=== PATIENT | female | born 1970 ===

== ENCOUNTER 2018-09-25 13:25 | Emergency (ER) | payer OTHER ==
[2018-09-25 13:39] VITALS: BMI 36.3
--- NOTE | 2018-09-25 14:11 | ED PDOC ---
HPI: Back Time Seen by Provider: 09/25/18 13:52 Chief Complaint (Nursing): Back Pain History Per: Patient Onset/Duration Of Symptoms: Days (5) Current Symptoms Are (Timing): Still Present Severity: Moderate Previous Symptoms: Back Pain Exacerbating Factor(s): Movement Additional Complaint(s): Right sided low back pain radiating to right buttock and down right leg. Also c/o lower abd cramps assoc with menses over past 5 days. Has also had cough which exacerbates back pain. Denies weakness or parasthesias. No dysuria or frequency. Past Medical History Vital Signs: Last Vital Signs Temp 99.5 F 09/25/18 13:38 Pulse 95 H 09/25/18 13:38 Resp 16 09/25/18 13:38 BP 154/74 H 09/25/18 13:38 Pulse Ox 97 09/25/18 13:38 - Medical History PMH: Seizures (LAST SEIZURE 06/01/2018) Denies: Chronic Kidney Disease - Surgical History Surgical History: Appendectomy, Cholecystectomy - Family History Family History: States: Unknown Family Hx - Immunization History Hx Tetanus Toxoid Vaccination: Yes Hx Pneumococcal Vaccination: Yes - Home Medications Home Medications: Ambulatory Orders Medication Instructions Recorded Levetiracetam [Keppra] 500 mg PO BID 06/03/18 Metformin HCl [Glucophage] 500 mg PO BID 06/03/18 Bimatoprost [Lumigan] 1 drop EACHEYE HS 06/15/18 Amoxicillin [Amoxil 500 mg Cap] 500 mg PO TID #21 cap 09/25/18 traMADol [Ultram] 50 mg PO Q8 #10 tab 09/25/18 - Allergies Allergies/Adverse Reactions: Allergies Allergy/AdvReac Type Severity Reaction Status Date / Time No Known Allergies Allergy Verified 06/15/18 12:11 Review of Systems Constitutional: Positive for: Fever Gastrointestinal: Positive for: Abdominal Pain Genitourinary Female: Positive for: Vaginal Bleeding Musculoskeletal: Positive for: Back Pain Neurological: Negative for: Weakness, Numbness Physical Exam - Physical Exam Appears: Positive for: Non-toxic Skin: Positive for: Normal Color, Warm, DRY Respiratory: Positive for: Normal Breath Sounds. Negative for: Respiratory Distress Gastrointestinal/Abdominal: Positive for: Bowel Sounds, Soft. Negative for: Tenderness Back: Positive for: Normal Inspection. Negative for: L CVA Tenderness, R CVA Tenderness, Vertebral Tenderness Neurologic/Psych: Positive for: Alert, Oriented - ECG O2 Sat by Pulse Oximetry: 97 Disposition - Clinical Impression Clinical Impression: Bronchitis, Radiculopathy, Dysmenorrhea - Patient ED Disposition Is Patient to be Admitted: No Counseled Patient/Family Regarding: Studies Performed, Diagnosis, Need For Followup, Rx Given - Disposition Referrals: New Ribeiro MD [Medical Doctor] - [facility]] Disposition: Routine/Home Disposition Time: 14:49 Condition: FAIR Prescriptions: Amoxicillin [Amoxil 500 mg Cap] 500 mg PO TID #21 cap traMADol [Ultram] 50 mg PO Q8 #10 tab Instructions: Acute Bronchitis, Radiculopathy (DC), Painful Periods Forms: [employer] ([place])
--- NOTE | 2018-09-25 14:46 | RAD ---
Date of service: 09/25/2018 HISTORY: Cough COMPARISON: No prior. TECHNIQUE: Chest PA and lateral FINDINGS: LUNGS: Increased and coarsened interstitial markings; rule out sequela of reactive/inflammatory airway disease or viral illness.. PLEURA: No significant pleural effusion identified. No pneumothorax apparent. CARDIOVASCULAR: Questionable minimal aortic atherosclerotic calcification present. Normal cardiac size. No pulmonary vascular congestion. OSSEOUS STRUCTURES: Mild multilevel degenerative spondylosis of the thoracic spine VISUALIZED UPPER ABDOMEN: Normal. OTHER FINDINGS: None. IMPRESSION: Increased and coarsened interstitial markings; rule out sequela of reactive/inflammatory airway disease or viral illness..
[2018-09-25 15:27] VITALS: BP 127/78; PULSE 78; RESP 19; TEMP 97.6; O2SAT 98
== END 2018-09-25 15:27 | disposition home or self-care (01) ==
LOC: H.ER 13:25
DX: M54.16 Radiculopathy, lumbar region (principal); J40 Bronchitis, not specified as acute or chronic; N94.6 Dysmenorrhea, unspecified
CPT/HCPCS: 71046; 81025; 96372; 99283; J1885

== ENCOUNTER 2018-09-29 09:09 | Inpatient (IN) | payer OTHER ==
[2018-09-29 09:09] VITALS: BMI 36.3
[2018-09-29] MEDS ORDERED: Sodium Chloride 0.9% 1,000 ML IV STA (10:32)
[2018-09-29] MEDS ORDERED: Morphine 4 MG/ML VIAL IV ONE (10:32)
--- NOTE | 2018-09-29 10:32 | ED PDOC ---
HPI: Female Pain Time Seen by Provider: 09/29/18 09:10 Chief Complaint (Nursing): Female Genitourinary Chief Complaint (Provider): Female Genitourinary History Per: Patient History/Exam Limitations: no limitations Onset/Duration Of Symptoms: Worse Since (today), Other (since Sep 01) Associated Symptoms: Nausea, Urinary Symptoms (Heavy bleeding). denies: Vomiting Additional Complaint(s): 47 y/o female with history of seizure and diabetes presents to ER for evaluation of heavy vaginal bleed associated with cramping abdominal pain. Patient reports the bleeding started on September 01. She reports she called Dr. Wan who recommended ED visit. Patient reports pain has been going on for a week with some nausea. She denies vomiting. PMD: Raymundo Wan Past Medical History Reviewed: Historical Data, Nursing Documentation, Vital Signs Vital Signs: Last Vital Signs Temp 98.7 F 09/29/18 09:14 Pulse 72 09/29/18 09:14 Resp 18 09/29/18 09:14 BP 80/62 L 09/29/18 09:14 Pulse Ox 100 09/29/18 09:14 - Medical History PMH: Diabetes, Seizures (LAST SEIZURE 06/01/2018) Denies: Chronic Kidney Disease - Surgical History Surgical History: Appendectomy, Cholecystectomy Other surgeries: D&C on June 15 - Family History Family History: States: Unknown Family Hx - Social History Current smoker - smoking cessation education provided: No (Stopped few days ago) Alcohol: None Drugs: Denies - Immunization History Hx Tetanus Toxoid Vaccination: Yes Hx Pneumococcal Vaccination: Yes - Home Medications Home Medications: Ambulatory Orders Medication Instructions Recorded Levetiracetam [Keppra] 500 mg PO Q12 06/03/18 Metformin HCl [Glucophage] 500 mg PO BID 06/03/18 Bimatoprost [Lumigan] 1 drop EACHEYE HS 06/15/18 Amoxicillin [Amoxil 500 mg Cap] 500 mg PO TID #21 cap 09/25/18 RX: traMADol [Ultram] 50 mg PO Q8 #10 tab 09/25/18 Ergocalciferol (Vitamin D2) 50,000 unit PO TH 09/29/18 [Vitamin D2] Norethindrone-E.estradiol-Iron 2 tab PO DAILY 09/29/18 [Taytulla 1 mg-20 Mcg Capsule] RX: Ferrous Sulfate [Feosol] 325 mg PO DAILY 09/29/18 RX: tiZANidine [Zanaflex] 4 mg PO Q12 09/29/18 - Allergies Allergies/Adverse Reactions: Allergies Allergy/AdvReac Type Severity Reaction Status Date / Time No Known Allergies Allergy Verified 06/15/18 12:11 Review of Systems ROS Statement: Except As Marked, All Systems Reviewed And Found Negative Gastrointestinal: Positive for: Nausea, Abdominal Pain. Negative for: Vomiting Genitourinary Female: Positive for: Vaginal Bleeding Physical Exam - Reviewed Nursing Documentation Reviewed: Yes Vital Signs Reviewed: Yes - Physical Exam Appears: Positive for: No Acute Distress, Uncomfortable Head Exam: Positive for: ATRAUMATIC, NORMOCEPHALIC Skin: Positive for: Normal Color, Warm, Dry Cardiovascular/Chest: Positive for: Regular Rate, Rhythm. Negative for: Murmur Respiratory: Positive for: Normal Breath Sounds. Negative for: Wheezing Gastrointestinal/Abdominal: Positive for: Normal Exam, Soft. Negative for: Tenderness Extremity: Positive for: Normal ROM Neurologic/Psych: Positive for: Alert, Oriented (x3) - Laboratory Results Result Diagrams: 09/29/18 10:40 09/29/18 10:40 - ECG O2 Sat by Pulse Oximetry: 100 (RA) Pulse Ox Interpretation: Normal Medical Decision Making Medical Decision Making: Time: 1013 Initial Plan: --Type and screen --EKG --Beta-HCG --CMP --CBC --Chest x-ray --Morphine 4 mg IV --Zofran 4 mg IV --Transvaginal US 1031 Dr. aWn says to admit patient to med surgery for D&C (pt has had these before for bleeding, has been on oral contraceptives pills to try to control the bleeding, but hasnt worked) 1104 CXR FINDINGS: LUNGS: No active pulmonary disease. PLEURA: No significant pleural effusion identified, no pneumothorax apparent. CARDIOVASCULAR: No aortic atherosclerotic calcification present. Normal cardiac size. No pulmonary vascular congestion. OSSEOUS STRUCTURES: No significant abnormalities. VISUALIZED UPPER ABDOMEN: Normal. OTHER FINDINGS: None. IMPRESSION: No active disease. 1246 Transvaginal US FINDINGS: UTERUS: Measures 6.1 x 6.1 x 8.9 cm. Normal in size, heterogeneous echo characteristics. Hypoechoic submucosal nodule perhaps small fibroid 5 x 7 mm. ENDOMETRIUM: Measures 12.9 mm in diameter. Heterogeneous endometrial echo complex. CERVIX: No cervical abnormality identified. RIGHT OVARY: Measures 2.3 x 2.5 x 2.7 cm. No solid mass. Normal flow. Sub cm cyst/follicle. LEFT OVARY: Measures 1.8 x 2.5 x 3.9 cm. No solid mass. Normal flow. Simple cyst 1.8 x 2.7 x 1.8 cm. FREE FLUID: No significant free fluid noted. OTHER FINDINGS: None. IMPRESSION: Thickened endometrium without focal abnormality. No visible intrauterine or ectopic products of gestation. Additional benign and/or incidental findings described above. Scribe Attestation: Documented by Lisbet Alvarez, acting as a scribe for Carlos Costa MD. Provider Scribe Attestation: All medical record entries made by the Scribe were at my direction and person ally dictated by me. I have reviewed the chart and agree that the record accurately reflects my personal performance of the history, physical exam, medical decision making, and the department course for this patient. I have also personally directed, reviewed, and agree with the discharge instructions and disposition. Disposition - Clinical Impression Clinical Impression: Female genitourinary symptoms - Patient ED Disposition Is Patient to be Admitted: Yes Counseled Patient/Family Regarding: Studies Performed, Diagnosis - Disposition Disposition Time: 10:31 Condition: FAIR
[2018-09-29] MEDS ORDERED: Morphine 4 MG/ML VIAL ONE (11:05)
--- NOTE | 2018-09-29 11:08 | RAD ---
Date of service: 09/29/2018 HISTORY: preop COMPARISON: CT not anterior structure FINDINGS: LUNGS: No active pulmonary disease. PLEURA: No significant pleural effusion identified, no pneumothorax apparent. CARDIOVASCULAR: No aortic atherosclerotic calcification present. Normal cardiac size. No pulmonary vascular congestion. OSSEOUS STRUCTURES: No significant abnormalities. VISUALIZED UPPER ABDOMEN: Normal. OTHER FINDINGS: None. IMPRESSION: No active disease.
[2018-09-29 11:24] LABS: BASO % 0.4 % (0.0-2.0); HEMOGLOBIN 11.7 g/dL (12.0-16.0); LYMPH # 1.7 K/uL (1.0-4.3); LYMPH % 28.7 % (20.0-40.0); MEAN CELL VOLUME 84.4 fl (81.0-99.0); MEAN CORPUSCULAR HEMOGLOBIN 27.1 pg (27.0-31.0); MEAN CORPUSCULAR HGB CONC 32.1 g/dL (33.0-37.0); MEAN PLATELET VOLUME 8.3 fl (7.2-11.7); MONO # 0.7 K/uL (0.0-0.8); MONO % 11.2 % (0.0-10.0); NEUT # 3.5 K/uL (1.8-7.0); NEUT % 59.7 % (50.0-75.0); NRBC % 0.4 % (0.0-0.0); RBC 4.33 Mil/uL (3.80-5.20); RED CELL DISTRIBUTION WIDTH 16.8 % (11.5-14.5); WHITE BLOOD COUNT 5.8 K/uL (4.8-10.8)
[2018-09-29 11:36] LABS: ALB/GLOB RATIO 1.1 (1.0-2.1); ALBUMIN 3.8 g/dL (3.5-5.0); ALT/SGPT 32 U/L (9-52); AST/SGOT 36 U/L (14-36); BLOOD UREA NITROGEN 12 mg/dl (7-17); CALCIUM 8.6 mg/dL (8.4-10.2); GFR NON-AFRICAN AMERICAN > 60
--- NOTE | 2018-09-29 12:50 | US ---
Date of service: 09/29/2018 HISTORY: Vaginal bleeding commencing September 01, 2018. LMP September 01, 2018. Irregular cycles. COMPARISON: None available. TECHNIQUE: FINDINGS: UTERUS: Measures 6.1 x 6.1 x 8.9 cm. Normal in size, heterogeneous echo characteristics. Hypoechoic submucosal nodule perhaps small fibroid 5 x 7 mm. ENDOMETRIUM: Measures 12.9 mm in diameter. Heterogeneous endometrial echo complex. CERVIX: No cervical abnormality identified. RIGHT OVARY: Measures 2.3 x 2.5 x 2.7 cm. No solid mass. Normal flow. Sub cm cyst/follicle. LEFT OVARY: Measures 1.8 x 2.5 x 3.9 cm. No solid mass. Normal flow. Simple cyst 1.8 x 2.7 x 1.8 cm. FREE FLUID: No significant free fluid noted. OTHER FINDINGS: None. IMPRESSION: Thickened endometrium without focal abnormality. No visible intrauterine or ectopic products of gestation. Additional benign and/or incidental findings described above.
[2018-09-29] MEDS ORDERED: Lactated Ringer's 1,000 ML IV SCH ×2 (15:00→18:00)
[2018-09-29] MEDS ORDERED: Propofol 10 mg/ml Inj (20 ML) ONE (16:27)
[2018-09-29] MEDS ORDERED: Dexamethasone 4 mg/1 ml ONE (16:28)
[2018-09-29] MEDS ORDERED: Ferric Subsulfate Sol(60 mL) ONE (17:07)
[2018-09-29] MEDS ORDERED: Silver Nitrate Topical - Stick ONE (17:08)
[2018-09-29] MEDS ORDERED: cefOXitin IV 1 gm in Dextrose 1 GM/50 ML BAG IVPB ONE (17:08)
[2018-09-29] MEDS ORDERED: Lactated Ringer's 1,000 ML IV ONE (17:27)
[2018-09-29] MEDS ORDERED: Midazolam 2 MG/2 ML VIAL ONE (17:29)
[2018-09-29] MEDS ORDERED: HYDROmorphone 0.5 mg/0.5 ml ISec IVP PRN (17:55)
[2018-09-29] MEDS ORDERED: HYDROmorphone 0.5 mg/0.5 ml ISec ONE (18:02)
[2018-09-29 22:35] VITALS: BP 115/75; PULSE 75; RESP 19; TEMP 98
--- NOTE | 2018-09-30 00:53 | CARD ---
APPROVED REPORT Date of service: 09/29/2018 EKG Measurement Heart [id number] <Conclusion> Normal sinus rhythm Normal ECG
--- NOTE | 2018-10-01 07:13 | OP ---
PROCEDURE DATE: 09/29/2018 PREOPERATIVE DIAGNOSIS: Dysfunctional uterine bleeding not responding to medical treatment. POSTOPERATIVE DIAGNOSIS: Dysfunctional uterine bleeding not responding to medical treatment plus pending pathology report. PROCEDURE PERFORMED: Fractional dilatation and curettage. SURGEON: Raymundo Wan MD ANESTHESIA USED: General per Dr. White. ESTIMATED BLOOD LOSS: 75 mL. DRAINS USED: None. REPLACEMENTS USED: None. FINDINGS: 1. Cervix appears thick mobile soft open to about 1 cm and bleeding per OS. 2. Uterus appears anteverted mobile, appears smooth to palpation and sounded to 8 cm. 3. No adnexal masses on palpation bilaterally. 4. Fractional dilatation and curettage performed, moderate amount of tissue was obtained and sent to Pathology for proper pathological evaluation. DESCRIPTION OF PROCEDURE: The patient was taken to the operating room and placed on the operating table in a supine position following induction of general anesthesia, the patient was then replaced in the dorsal lithotomy position. Peroneal and genital areas were draped and prepped in a usual sterile manner. At this time, we then proceeded to place a sterile catheter into the bladder. Clear fluid was then evacuated from the bladder. The patient was then examined under anesthesia with the above findings. Heavyweight speculum was then placed in a posterior wall of vagina. The anterior lip of the cervix was then grasped using a ring forceps and retracted superiorly. At this time, the endocervical canal was then curette using a Vijaya curette, minimal amount of tissue obtained and sent to Pathology. The endocervical canal appeared to be dilated to about 1 cm very gingerly using a uterine sound. The uterine cavity was sounded to about 8 cm. After this, sharp curettage was then performed. Moderate amount of tissue was then obtained and the uterus was massaged and contracted well. Ring forceps was removed from the cervix minimal amount of bleeding noted. The patient tolerated the procedure well and there were no complications. She was transferred to the recovery room in satisfactory condition. Raymundo Wan MD
[2018-10-01 21:25] VITALS: O2SAT 100
== END 2018-09-29 22:20 | disposition home or self-care (01) | DRG 745 ==
LOC: H.ER 09:09 → H.ERHOLD 10:31 → H.OB/GYN 14:37 → H.MEDSURG1 20:23
PROVIDERS: ADMIT Specialist; ATTEND Specialist
PROC: 0UDB7ZZ Extraction of Endometrium, Via Natural or Artificial Opening (ICD-10-PCS; principal; 2018-09-29 17:00)
DX: N93.9 Abnormal uterine and vaginal bleeding, unspecified (principal); E11.9 Type 2 diabetes mellitus without complications; R93.89 Abnormal findings on diagnostic imaging of other specified body structures; Z79.84 Long term (current) use of oral hypoglycemic drugs